=== PATIENT | male | born 1985 | race Caucasian/White ===

== ENCOUNTER 2021-03-17 20:45 | Emergency (ER) | payer MEDICAID ==
[~2021-03-17] VITALS: Ht 188 cm; Wt 65.9 kg
[~2021-03-17 20:45] MED LIST: CYCL-394 PO; HYDR-4383 PO; IBUP-1572 PO; IBUP-1984 PO; NO HOME MEDS; ONDA4TAB6 PO
[2021-03-17] MEDS ORDERED: chlordiazePOXIDE 25mg capsule PO ONE (21:00)
[2021-03-17] MEDS ORDERED: CHLO25CA10 PO (21:49)
[2021-03-17 22:04] VITALS: BP 130/89
== END 2021-03-17 22:08 | disposition home or self-care (01) ==
LOC: ER 20:46
DX: F10.239 Alcohol dependence with withdrawal, unspecified (principal); G89.29 Other chronic pain; Z72.89 Other problems related to lifestyle; Z79.899 Other long term (current) drug therapy; Y90.9 Presence of alcohol in blood, level not specified
CPT/HCPCS: 99283